=== PATIENT | female | born 1970 | race Caucasian/White ===

== ENCOUNTER 2019-10-16 19:52 | Emergency (ER) | payer MEDICAID ==
[~2019-10-16] VITALS: Ht 152.4 cm; Wt 79.0 kg
[2019-10-16] MEDS ORDERED: ALBUTEROL (0.083%) 2.5MG/3ML NEB HHN STA (21:12)
[2019-10-16] MEDS ORDERED: PREDNISONE 20MG TABLET PO STA (21:12)
[2019-10-16] MEDS ORDERED: IPRATROPIUM BROMIDE (0.02%) 0.5MG/2.5ML NEB HHN STA (21:12)
[2019-10-17 00:31] VITALS: BP 176/91
== END 2019-10-17 00:34 | disposition home or self-care (01) ==
LOC: ER 20:15
DX: R06.03 Acute respiratory distress (principal); J45.901 Unspecified asthma with (acute) exacerbation; I11.9 Hypertensive heart disease without heart failure; E78.00 Pure hypercholesterolemia, unspecified
CPT/HCPCS: 71045; 93005; 94640; 99283; J7512; J7610; Z7610